=== PATIENT | male | born 1955 | race African-American/Black ===

== ENCOUNTER 2017-10-25 16:07 | Emergency (ER) | payer OTHER ==
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
[2017-10-25 19:17] VITALS: BP 117/81
== END 2017-10-25 19:17 | disposition home or self-care (01) ==
LOC: ER 16:07
DX: S13.4XXA Sprain of ligaments of cervical spine, initial encounter (principal); R51 Headache; V87.7XXA Person injured in collision between other specified motor vehicles (traffic), initial encounter; F17.200 Nicotine dependence, unspecified, uncomplicated
CPT/HCPCS: 70450; 99283

== ENCOUNTER 2017-11-01 10:44 | Emergency (ER) | payer OTHER | END 2017-11-01 12:10 | disposition left against medical advice (07) | LOC: ER 10:44 | DX: Z53.21 Procedure and treatment not carried out due to patient leaving prior to being seen by health care provider (principal) ==